=== PATIENT | female | born 1960 | race African-American/Black ===

== ENCOUNTER → 2017-09-11 | Outpatient (CLI) | payer BC | END | disposition home or self-care (01) | LOC: RAD 13:41 | DX: M19.032 Primary osteoarthritis, left wrist (principal); M19.031 Primary osteoarthritis, right wrist; E04.1 Nontoxic single thyroid nodule | CPT/HCPCS: 73110; 76536 ==

== ENCOUNTER → 2017-10-07 | Outpatient (CLI) | payer BC ==
[2017-10-07 14:56] LABS: ADD MAN DIFF? NO
[2017-10-07 15:05] LABS: WHITE BLOOD COUNT 3.5 10^3/ul (4.8-10.8)
[2017-10-07 15:05] LABS: BASOPHILS % 1.1 % (0.0-2.0); EOSINOPHILS # 0.1 10^3/ul (0.0-0.5); HEMATOCRIT 37.1 % (37.0-47.0); HEMOGLOBIN 12.4 g/dl (12.0-16.0); LYMPHOCYTES # 1.2 10^3/ul (0.8-2.9); LYMPHOCYTES % 33.5 % (15.0-51.0); MEAN CORPUSCULAR HEMOGLOBIN 27.2 pg (29.0-33.0); MEAN CORPUSCULAR HGB CONC 33.4 g/dl (32.0-37.0); MEAN CORPUSCULAR VOLUME 81.4 fl (82.0-101.0); MEAN PLATELET VOLUME 10.8 fl (7.4-10.4); MONOCYTE # 0.3 10^3/ul (0.3-0.9); MONOCYTES % 7.7 % (0.0-11.0); NEUTROPHIL # 1.9 10^3/ul (1.6-7.5); NEUTROPHILS % 55.4 % (39.0-77.0); PLATELET COUNT 194 10^3/UL (140-415); RED BLOOD COUNT 4.56 10^6/ul (4.20-5.40); RED CELL DISTRIBUTION WIDTH 14.8 % (11.5-14.5)
[2017-10-07 15:14] LABS: ALKALINE PHOSPHATASE 73 IU/L (42-121); ASPARTATE AMINO TRANSFERASE 30 IU/L (15-46); CREATININE 1.21 mg/dl (0.44-1.00)
[2017-10-07 15:14] LABS: BLOOD UREA NITROGEN 18 mg/dl (7-20)
[2017-10-07 16:22] LABS: ERYTHROCYTE SEDIMENTATION RATE 10 mm/Hr (0-30)
[2017-10-08 20:52] LABS: ANA SCREEN POSITIVE (NEGATIVE)
[2017-10-08 21:33] LABS: ANA PATTERN SPECKLED; ANA TITER 1:40 titer
[2017-10-09 15:11] LABS: CYCLIC CITRULLINATED PEP IGG <16 UNITS
== END | disposition home or self-care (01) ==
LOC: LAB 09:17
DX: M25.50 Pain in unspecified joint (principal); M25.40 Effusion, unspecified joint; M79.1 Myalgia
CPT/HCPCS: 82565; 84075; 84450; 84520; 85025; 85651; 86038; 86200

== ENCOUNTER → 2017-11-24 | Outpatient (CLI) | payer BC ==
[2017-11-24 11:05] LABS: ADD MAN DIFF? NO
[2017-11-24 11:12] LABS: WHITE BLOOD COUNT 3.2 10^3/ul (4.8-10.8)
[2017-11-24 11:12] LABS: BASOPHILS % 0.9 % (0.0-2.0); EOSINOPHILS # 0.1 10^3/ul (0.0-0.5); EOSINOPHILS % 1.9 % (0.0-7.0); HEMATOCRIT 38.8 % (37.0-47.0); LYMPHOCYTES # 1.1 10^3/ul (0.8-2.9); LYMPHOCYTES % 33.3 % (15.0-51.0); MEAN CORPUSCULAR HEMOGLOBIN 27.1 pg (29.0-33.0); MEAN CORPUSCULAR HGB CONC 33.5 g/dl (32.0-37.0); MEAN CORPUSCULAR VOLUME 80.8 fl (82.0-101.0); MEAN PLATELET VOLUME 10.2 fl (7.4-10.4); MONOCYTE # 0.3 10^3/ul (0.3-0.9); MONOCYTES % 10.4 % (0.0-11.0); NEUTROPHIL # 1.7 10^3/ul (1.6-7.5); NEUTROPHILS % 53.2 % (39.0-77.0); PLATELET COUNT 216 10^3/UL (140-415); RED CELL DISTRIBUTION WIDTH 14.4 % (11.5-14.5)
[2017-11-24 11:28] LABS: HEMOGLOBIN A1C 5.4 % (0-5.9)
[2017-11-24 11:35] LABS: ALANINE AMINOTRANSFERASE 37 IU/L (13-69); ALBUMIN 4.9 g/dl (3.3-4.9); ALBUMIN/GLOBULIN RATIO 1.53; ALKALINE PHOSPHATASE 72 IU/L (42-121); ANION GAP 15 (8-16); ASPARTATE AMINO TRANSFERASE 34 IU/L (15-46); BILIRUBIN,INDIRECT 0.2 mg/dl (0-1.1); BILIRUBIN,TOTAL 0.2 mg/dl (0.2-1.3); BLOOD UREA NITROGEN 20 mg/dl (7-20); CALCIUM 10.1 mg/dl (8.4-10.2); CARBON DIOXIDE 31 mmol/L (21-31); CHLORIDE 107 mmol/L (97-110); CHOL/HDL RATIO 2.6 RATIO; CHOLESTEROL 192 mg/dl (100-200); GLUCOSE 96 mg/dl (70-220); HDL CHOLESTEROL 72 mg/dl (37-92); LDL CHOLESTEROL,CALCULATED 106 mg/dl; POTASSIUM 4.3 mmol/L (3.5-5.1); SODIUM 149 mmol/L (135-144); TOTAL PROTEIN 8.1 g/dl (6.1-8.1); TRIGLYCERIDES 69 mg/dl (0-149)
[2017-11-24 12:05] LABS: THYROID STIMULATING HORMONE 0.984 MIU/L (0.465-4.680)
== END | disposition home or self-care (01) ==
LOC: LAB 10:20
DX: E78.5 Hyperlipidemia, unspecified (principal); E03.9 Hypothyroidism, unspecified; R73.03 Prediabetes
CPT/HCPCS: 80053; 80061; 82306; 83036; 84436; 84443; 85025

== ENCOUNTER → 2017-11-24 | Outpatient (CLI) | payer BC ==
[2017-11-24 11:36] LABS: CREATINE KINASE 352 IU/L (23-200)
[2017-11-24 11:36] LABS: PHOSPHORUS 4.2 mg/dl (2.5-4.9)
== END | disposition home or self-care (01) ==
LOC: LAB 10:22
DX: E78.5 Hyperlipidemia, unspecified (principal); E03.9 Hypothyroidism, unspecified; R73.03 Prediabetes
CPT/HCPCS: 82550; 84100; 85651

== ENCOUNTER → 2018-03-29 | Outpatient (CLI) | payer BC ==
[2018-03-29 09:32] LABS: ADD MAN DIFF? NO
[2018-03-29 09:36] LABS: BASOPHILS % 0.7 % (0.0-2.0); EOSINOPHILS # 0.1 10^3/ul (0.0-0.5); EOSINOPHILS % 2.3 % (0.0-7.0); HEMATOCRIT 39.1 % (37.0-47.0); LYMPHOCYTES % 31.1 % (15.0-51.0); MEAN CORPUSCULAR HEMOGLOBIN 27.1 pg (29.0-33.0); MEAN CORPUSCULAR HGB CONC 33.2 g/dl (32.0-37.0); MEAN CORPUSCULAR VOLUME 81.6 fl (82.0-101.0); MEAN PLATELET VOLUME 10.2 fl (7.4-10.4); MONOCYTE # 0.2 10^3/ul (0.3-0.9); MONOCYTES % 7.5 % (0.0-11.0); NEUTROPHIL # 1.8 10^3/ul (1.6-7.5); NEUTROPHILS % 58.1 % (39.0-77.0); PLATELET COUNT 242 10^3/UL (140-415); RED BLOOD COUNT 4.79 10^6/ul (4.20-5.40); RED CELL DISTRIBUTION WIDTH 14.6 % (11.5-14.5)
[2018-03-29 09:36] LABS: WHITE BLOOD COUNT 3.1 10^3/ul (4.8-10.8)
[2018-03-29 09:54] LABS: SODIUM 145 mmol/L (135-144)
[2018-03-29 09:54] LABS: ALANINE AMINOTRANSFERASE 26 IU/L (13-69); ALKALINE PHOSPHATASE 60 IU/L (42-121); ASPARTATE AMINO TRANSFERASE 26 IU/L (15-46); BLOOD UREA NITROGEN 18 mg/dl (7-20); CARBON DIOXIDE 30 mmol/L (21-31); CHLORIDE 106 mmol/L (97-110); CREATINE KINASE 322 IU/L (23-200); CREATININE 1.07 mg/dl (0.44-1.00); LACTATE DEHYDROGENASE 655 IU/L (313-618); POTASSIUM 4.1 mmol/L (3.5-5.1)
[2018-03-29 10:45] LABS: ERYTHROCYTE SEDIMENTATION RATE 3 mm/Hr (0-30)
== END | disposition home or self-care (01) ==
LOC: LAB 08:46
DX: G72.9 Myopathy, unspecified (principal); M25.50 Pain in unspecified joint; M25.40 Effusion, unspecified joint
CPT/HCPCS: 82085; 82374; 82435; 82550; 82565; 83615; 84075; 84132; 84295; 84450; 84460; 84520; 85025; 85651

== ENCOUNTER → 2018-03-29 | Outpatient (CLI) | payer BC ==
[2018-03-29 10:09] LABS: FREE T3 3.97 pg/ml (2.77-5.27)
[2018-03-29 10:22] LABS: FREE T4 (FREE THYROXINE) 1.16 ng/dl (0.64-1.79)
== END | disposition home or self-care (01) ==
LOC: LAB 08:51
DX: R22.1 Localized swelling, mass and lump, neck (principal)
CPT/HCPCS: 84439; 84443; 84481

== ENCOUNTER → 2018-06-07 | Outpatient (CLI) | payer BC ==
[2018-06-07 09:14] LABS: ADD MAN DIFF? NO
[2018-06-07 09:19] LABS: BASOPHILS % 1.2 % (0.0-2.0); EOSINOPHILS % 1.7 % (0.0-7.0); HEMATOCRIT 41.1 % (37.0-47.0); HEMOGLOBIN 13.6 g/dl (12.0-16.0); LYMPHOCYTES # 0.9 10^3/ul (0.8-2.9); LYMPHOCYTES % 37.6 % (15.0-51.0); MEAN CORPUSCULAR HEMOGLOBIN 26.4 pg (29.0-33.0); MEAN CORPUSCULAR HGB CONC 33.1 g/dl (32.0-37.0); MEAN CORPUSCULAR VOLUME 79.8 fl (82.0-101.0); MEAN PLATELET VOLUME 10.2 fl (7.4-10.4); MONOCYTE # 0.3 10^3/ul (0.3-0.9); NEUTROPHIL # 1.2 10^3/ul (1.6-7.5); NEUTROPHILS % 47.5 % (39.0-77.0); PLATELET COUNT 214 10^3/UL (140-415); RED BLOOD COUNT 5.15 10^6/ul (4.20-5.40)
[2018-06-07 09:19] LABS: WHITE BLOOD COUNT 2.4 10^3/ul (4.8-10.8)
[2018-06-07 09:43] LABS: ALANINE AMINOTRANSFERASE 37 IU/L (13-69); ALKALINE PHOSPHATASE 64 IU/L (42-121); ASPARTATE AMINO TRANSFERASE 26 IU/L (15-46); CREATININE 1.02 mg/dl (0.44-1.00)
[2018-06-07 09:43] LABS: BLOOD UREA NITROGEN 15 mg/dl (7-20)
[2018-06-07 10:15] LABS: HEPATITIS B SURFACE ANTIGEN NEGATIVE (NEGATIVE)
[2018-06-07 10:33] LABS: HEPATITIS C VIRAL ANTIBODY NEGATIVE (NEGATIVE)
[2018-06-07 10:52] LABS: ERYTHROCYTE SEDIMENTATION RATE 4 mm/Hr (0-30)
[2018-06-07 16:47] LABS: RHEUMATOID FACTOR NEGATIVE (NEGATIVE)
[2018-06-08 20:06] LABS: CYCLIC CITRULLINATED PEP IGG <16 UNITS
[2018-06-09 20:52] LABS: NIL 0.05 IU/mL; QUANTIFERON(R)-TB GOLD NEGATIVE (NEGATIVE); TB-NIL <0.00 IU/mL
== END | disposition home or self-care (01) ==
LOC: LAB 08:51
DX: M19.90 Unspecified osteoarthritis, unspecified site (principal)
CPT/HCPCS: 82565; 84075; 84450; 84460; 84520; 85025; 85651; 86200; 86430; 86480; 86803; 87340

== ENCOUNTER → 2018-10-15 | Outpatient (CLI) | payer BC ==
[2018-10-15 14:53] LABS: ADD MAN DIFF? NO
[2018-10-15 14:56] LABS: BASOPHILS % 1.2 % (0.0-2.0); EOSINOPHILS % 1.2 % (0.0-7.0); HEMATOCRIT 42.2 % (37.0-47.0); HEMOGLOBIN 13.9 g/dl (12.0-16.0); LYMPHOCYTES # 0.8 10^3/ul (0.8-2.9); LYMPHOCYTES % 24.8 % (15.0-51.0); MEAN CORPUSCULAR HEMOGLOBIN 27.1 pg (29.0-33.0); MEAN CORPUSCULAR HGB CONC 32.9 g/dl (32.0-37.0); MEAN CORPUSCULAR VOLUME 82.3 fl (82.0-101.0); MEAN PLATELET VOLUME 10.5 fl (7.4-10.4); MONOCYTE # 0.4 10^3/ul (0.3-0.9); MONOCYTES % 11.6 % (0.0-11.0); NEUTROPHILS % 60.9 % (39.0-77.0); PLATELET COUNT 202 10^3/UL (140-415); RED BLOOD COUNT 5.13 10^6/ul (4.20-5.40); RED CELL DISTRIBUTION WIDTH 14.3 % (11.5-14.5)
[2018-10-15 14:56] LABS: WHITE BLOOD COUNT 3.3 10^3/ul (4.8-10.8)
[2018-10-15 15:18] LABS: ALANINE AMINOTRANSFERASE 30 IU/L (13-69); ALBUMIN 4.9 g/dl (3.3-4.9); ALBUMIN/GLOBULIN RATIO 1.36; ALKALINE PHOSPHATASE 77 IU/L (42-121); ANION GAP 9 (5-13); ASPARTATE AMINO TRANSFERASE 37 IU/L (15-46); BILIRUBIN,INDIRECT 0.6 mg/dl (0-1.1); BILIRUBIN,TOTAL 0.6 mg/dl (0.2-1.3); BLOOD UREA NITROGEN 17 mg/dl (7-20); CALCIUM 10.6 mg/dl (8.4-10.2); CARBON DIOXIDE 30 mmol/L (21-31); CHLORIDE 104 mmol/L (97-110); CREATININE 1.23 mg/dl (0.44-1.00); Estimated GFR 55 mL/min (>60); GLUCOSE 90 mg/dl (70-220); POTASSIUM 3.8 mmol/L (3.5-5.1); SODIUM 143 mmol/L (135-144); TOTAL PROTEIN 8.5 g/dl (6.1-8.1)
[2018-10-15 15:36] LABS: FREE T4 (FREE THYROXINE) 1.28 ng/dl (0.64-1.79)
[2018-10-15 16:14] LABS: THYROID STIMULATING HORMONE 0.802 MIU/L (0.465-4.680)
[2018-10-15 16:21] LABS: ERYTHROCYTE SEDIMENTATION RATE 2 mm/Hr (0-30)
[2018-10-15 21:14] LABS: RHEUMATOID FACTOR NEGATIVE (NEGATIVE)
== END | disposition home or self-care (01) ==
LOC: LAB 14:15
DX: M79.10 Myalgia, unspecified site (principal)
CPT/HCPCS: 80053; 84439; 84443; 85025; 85651; 86430

== ENCOUNTER → 2018-12-28 | Outpatient (CLI) | payer BC ==
[2018-12-28 16:48] LABS: FOLATE 7.1 ng/ml (2.8-20.0)
== END | disposition home or self-care (01) ==
LOC: LAB 09:43
DX: M25.40 Effusion, unspecified joint (principal); M79.10 Myalgia, unspecified site
CPT/HCPCS: 82607; 82746; 85651

== ENCOUNTER → 2018-12-28 | Outpatient (CLI) | payer BC ==
[2018-12-28 10:01] LABS: ADD MAN DIFF? NO
[2018-12-28 10:11] LABS: WHITE BLOOD COUNT 2.8 10^3/ul (4.8-10.8)
[2018-12-28 10:11] LABS: BASOPHIL # 0.1 10^3/ul (0.0-0.1); BASOPHILS % 1.8 % (0.0-2.0); EOSINOPHILS # 0.1 10^3/ul (0.0-0.5); EOSINOPHILS % 3.9 % (0.0-7.0); HEMATOCRIT 38.3 % (37.0-47.0); HEMOGLOBIN 12.8 g/dl (12.0-16.0); LYMPHOCYTES # 0.9 10^3/ul (0.8-2.9); LYMPHOCYTES % 31.5 % (15.0-51.0); MEAN CORPUSCULAR HEMOGLOBIN 27.2 pg (29.0-33.0); MEAN CORPUSCULAR HGB CONC 33.4 g/dl (32.0-37.0); MEAN CORPUSCULAR VOLUME 81.3 fl (82.0-101.0); MEAN PLATELET VOLUME 10.9 fl (7.4-10.4); MONOCYTE # 0.3 10^3/ul (0.3-0.9); MONOCYTES % 11.1 % (0.0-11.0); NEUTROPHIL # 1.4 10^3/ul (1.6-7.5); NEUTROPHILS % 51.3 % (39.0-77.0); PLATELET COUNT 190 10^3/UL (140-415); RED BLOOD COUNT 4.71 10^6/ul (4.20-5.40); RED CELL DISTRIBUTION WIDTH 13.9 % (11.5-14.5)
[2018-12-28 10:42] LABS: ALANINE AMINOTRANSFERASE 25 IU/L (13-69); ALBUMIN 4.4 g/dl (3.3-4.9); ALBUMIN/GLOBULIN RATIO 1.41; ALKALINE PHOSPHATASE 56 IU/L (42-121); ANION GAP 8 (5-13); ASPARTATE AMINO TRANSFERASE 33 IU/L (15-46); BILIRUBIN,INDIRECT 0.2 mg/dl (0-1.1); BILIRUBIN,TOTAL 0.2 mg/dl (0.2-1.3); BLOOD UREA NITROGEN 18 mg/dl (7-20); CALCIUM 10.5 mg/dl (8.4-10.2); CARBON DIOXIDE 32 mmol/L (21-31); CHLORIDE 105 mmol/L (97-110); CHOL/HDL RATIO 2.8 RATIO; CHOLESTEROL 182 mg/dl (100-200); Estimated GFR > 60 mL/min (>60); GLUCOSE 94 mg/dl (70-220); HDL CHOLESTEROL 64 mg/dl (37-92); LDL CHOLESTEROL,CALCULATED 105 mg/dl; POTASSIUM 4.1 mmol/L (3.5-5.1); SODIUM 145 mmol/L (135-144); TOTAL PROTEIN 7.5 g/dl (6.1-8.1); TRIGLYCERIDES 64 mg/dl (0-149)
[2018-12-28 11:44] LABS: HEMOGLOBIN A1C 5.5 % (0-5.9)
[2018-12-28 15:19] LABS: T4 (THYROXINE) 8.6 ug/dl (5.5-11.0)
== END | disposition home or self-care (01) ==
LOC: LAB 09:36
DX: E78.5 Hyperlipidemia, unspecified (principal); E03.9 Hypothyroidism, unspecified; R73.03 Prediabetes
CPT/HCPCS: 80053; 80061; 83036; 84436; 84443; 85025

== ENCOUNTER 2019-01-13 11:52 | Emergency (ER) | payer BC ==
[2019-01-13 12:36] LABS: ADD MAN DIFF? NO
[2019-01-13 12:42] LABS: BASOPHILS % 0.7 % (0.0-2.0); EOSINOPHILS # 0.1 10^3/ul (0.0-0.5); EOSINOPHILS % 1.1 % (0.0-7.0); HEMATOCRIT 38.3 % (37.0-47.0); LYMPHOCYTES % 17.8 % (15.0-51.0); MEAN CORPUSCULAR HEMOGLOBIN 27.3 pg (29.0-33.0); MEAN CORPUSCULAR HGB CONC 33.9 g/dl (32.0-37.0); MEAN CORPUSCULAR VOLUME 80.3 fl (82.0-101.0); MEAN PLATELET VOLUME 10.5 fl (7.4-10.4); MONOCYTE # 0.6 10^3/ul (0.3-0.9); MONOCYTES % 11.1 % (0.0-11.0); NEUTROPHIL # 3.9 10^3/ul (1.6-7.5); NEUTROPHILS % 69.1 % (39.0-77.0); PLATELET COUNT 218 10^3/UL (140-415); RED BLOOD COUNT 4.77 10^6/ul (4.20-5.40); RED CELL DISTRIBUTION WIDTH 14.4 % (11.5-14.5)
[2019-01-13 12:42] LABS: WHITE BLOOD COUNT 5.7 10^3/ul (4.8-10.8)
[2019-01-13 13:01] LABS: INR 1.07; PT RATIO 1.1
[2019-01-13 13:02] LABS: ALANINE AMINOTRANSFERASE 30 IU/L (13-69); ALBUMIN 4.1 g/dl (3.3-4.9); ALBUMIN/GLOBULIN RATIO 1.46; ALKALINE PHOSPHATASE 62 IU/L (42-121); ANION GAP 7 (5-13); ASPARTATE AMINO TRANSFERASE 23 IU/L (15-46); BILIRUBIN,INDIRECT 0.7 mg/dl (0-1.1); BILIRUBIN,TOTAL 0.7 mg/dl (0.2-1.3); BLOOD UREA NITROGEN 14 mg/dl (7-20); CALCIUM 10.4 mg/dl (8.4-10.2); CARBON DIOXIDE 31 mmol/L (21-31); CHLORIDE 105 mmol/L (97-110); CREATINE KINASE 188 IU/L (23-200); CREATININE 1.01 mg/dl (0.44-1.00); Estimated GFR > 60 mL/min (>60); GLUCOSE 90 mg/dl (70-220); PARTIAL THROMBOPLASTIN TIME 25.9 Sec (23.0-35.0); POTASSIUM 4.1 mmol/L (3.5-5.1); SODIUM 143 mmol/L (135-144); TOTAL PROTEIN 6.9 g/dl (6.1-8.1)
[2019-01-13 13:14] LABS: B-TYPE NATRIURETIC PEPTIDE 80 PG/ML (0-125); CK INDEX 0.8; CK-MB 1.59 ng/ml (0.0-2.4); TROPONIN-I < 0.012 ng/ml (0.000-0.120)
[2019-01-13] MEDS ORDERED: SOD CHLORIDE 0.9% 100 ML (13:30)
[2019-01-13] MEDS ORDERED: IOHEXOL 100 ML (13:30)
[2019-01-13] MEDS: CEFEPIME 1GM/50 ML (PMX) 50 ML IVPB (15:27)
[2019-01-13 15:48] LABS: ADD UMIC NO; UR ASCORBIC ACID NEGATIVE (NEGATIVE); UR BILIRUBIN (Dip) NEGATIVE (NEGATIVE); UR BLOOD (Dip) NEGATIVE (NEGATIVE); UR CLARITY CLEAR (CLEAR); UR COLOR STRAW (YELLOW); UR GLUCOSE (Dip) NEGATIVE (NEGATIVE); UR KETONES (Dip) NEGATIVE (NEGATIVE); UR LEUKOCYTE ESTERASE (Dip) NEGATIVE Leu/ul (NEGATIVE); UR NITRITE (Dip) NEGATIVE (NEGATIVE); UR SPECIFIC GRAVITY (Dip) 1.041 (1.003-1.030); UR TOTAL PROTEIN (Dip) NEGATIVE (NEGATIVE); UR UROBILINOGEN (Dip) NEGATIVE (NEGATIVE)
[2019-01-13] MEDS: VANCOMYCIN 1 GM (PMX) 250 ML IVPB (16:09)
[2019-01-13] MEDS: KETOROLAC 30 MG INJ IV (16:13)
== END 2019-01-13 18:54 | disposition home or self-care (01) ==
LOC: E/R 11:52
DX: R91.8 Other nonspecific abnormal finding of lung field (principal); I10 Essential (primary) hypertension; Z87.891 Personal history of nicotine dependence
CPT/HCPCS: 71275; 74177; 80053; 81003; 82550; 82553; 83880; 84484; 85025; 85610; 85730; 87040-91; 87086; 93005; 96374; 96375; 99285-25

== ENCOUNTER → 2019-01-27 | Outpatient (CLI) | payer BC ==
[~2019-01-27] MED LIST: ALBUTEROL 0.5% (NEB) 2.5 MG/0.5 ML AMP
== END | disposition home or self-care (01) ==
LOC: PUL 07:04
DX: R91.8 Other nonspecific abnormal finding of lung field (principal)
CPT/HCPCS: 94060; 94664; 94726; 94729

== ENCOUNTER 2019-02-08 10:18 | Inpatient (IN) | payer BC ==
[2019-02-02 14:09] LABS: ADD MAN DIFF? NO
[2019-02-02 14:11] LABS: WHITE BLOOD COUNT 3.2 10^3/ul (4.8-10.8)
[2019-02-02 14:11] LABS: BASOPHILS % 1.3 % (0.0-2.0); EOSINOPHILS # 0.1 10^3/ul (0.0-0.5); EOSINOPHILS % 3.5 % (0.0-7.0); HEMATOCRIT 37.6 % (37.0-47.0); HEMOGLOBIN 12.3 g/dl (12.0-16.0); LYMPHOCYTES # 1.3 10^3/ul (0.8-2.9); LYMPHOCYTES % 40.1 % (15.0-51.0); MEAN CORPUSCULAR HEMOGLOBIN 26.7 pg (29.0-33.0); MEAN CORPUSCULAR HGB CONC 32.7 g/dl (32.0-37.0); MEAN CORPUSCULAR VOLUME 81.6 fl (82.0-101.0); MEAN PLATELET VOLUME 10.1 fl (7.4-10.4); MONOCYTE # 0.3 10^3/ul (0.3-0.9); MONOCYTES % 9.8 % (0.0-11.0); NEUTROPHIL # 1.4 10^3/ul (1.6-7.5); NEUTROPHILS % 45.3 % (39.0-77.0); PLATELET COUNT 230 10^3/UL (140-415); RED BLOOD COUNT 4.61 10^6/ul (4.20-5.40); RED CELL DISTRIBUTION WIDTH 14.2 % (11.5-14.5)
[2019-02-02 14:15] LABS: ADD UMIC NO; UR ASCORBIC ACID NEGATIVE (NEGATIVE); UR BILIRUBIN (Dip) NEGATIVE (NEGATIVE); UR BLOOD (Dip) NEGATIVE (NEGATIVE); UR CLARITY CLEAR (CLEAR); UR COLOR YELLOW (YELLOW); UR GLUCOSE (Dip) NEGATIVE (NEGATIVE); UR KETONES (Dip) NEGATIVE (NEGATIVE); UR LEUKOCYTE ESTERASE (Dip) NEGATIVE Leu/ul (NEGATIVE); UR NITRITE (Dip) NEGATIVE (NEGATIVE); UR SPECIFIC GRAVITY (Dip) 1.011 (1.003-1.030); UR TOTAL PROTEIN (Dip) NEGATIVE (NEGATIVE); UR UROBILINOGEN (Dip) NEGATIVE (NEGATIVE)
[2019-02-02 14:31] LABS: INR 0.93; PARTIAL THROMBOPLASTIN TIME 26.4 Sec (23.0-35.0); PROTIME 12.6 Sec (11.9-14.9)
[2019-02-02 14:34] LABS: ANION GAP 5 (5-13); BLOOD UREA NITROGEN 15 mg/dl (7-20); CALCIUM 9.6 mg/dl (8.4-10.2); CARBON DIOXIDE 31 mmol/L (21-31); CHLORIDE 107 mmol/L (97-110); Estimated GFR > 60 mL/min (>60); GLUCOSE 93 mg/dl (70-220); POTASSIUM 4.3 mmol/L (3.5-5.1); SODIUM 143 mmol/L (135-144)
[2019-02-08] MEDS ORDERED: SEVOFLURANE 15 MIN (13:00)
[2019-02-08] MEDS ORDERED: MIDAZOLAM 1 MG/ML 2 ML INJ (13:16)
[2019-02-08] MEDS ORDERED: BUPIVACAINE 0.5%/EPI (SDV) 30 ML INJ (13:46)
[2019-02-08] MEDS ORDERED: ROCURONIUM 50 MG INJ (15:33)
[2019-02-08] MEDS ORDERED: LIDOCAINE 2% (SDV) 5 ML INJ (15:35)
[2019-02-08] MEDS ORDERED: CEFAZOLIN 1 GM INJ ×2 (15:35→15:36)
[2019-02-08] MEDS ORDERED: PROPOFOL 20 ML (15:35)
[2019-02-08] MEDS ORDERED: METOCLOPRAMIDE 10 MG INJ (15:36)
[2019-02-08] MEDS ORDERED: ONDANSETRON 4 MG INJ ×2 (15:36→16:13)
[2019-02-08] MEDS ORDERED: DEXAMETHASONE 4 MG/ML 5 ML INJ (15:37)
[2019-02-08] MEDS ORDERED: OXYCODONE/ACETAMINOPHEN (5/325) TAB PO (16:00)
[2019-02-08] MEDS ORDERED: DIPHENHYDRAMINE 50 MG INJ IV ×2 (16:00→16:30)
[2019-02-08] MEDS ORDERED: GLYCOPYRROLATE 0.4 MG INJ (16:03)
[2019-02-08] MEDS ORDERED: NEOSTIGMINE 3 MG/3 ML SYRINGE (16:03)
[2019-02-08] MEDS ORDERED: FENTAnyl 50 MCG/ML VIAL (16:11)
[2019-02-08] MEDS ORDERED: LABETALOL HCL 20MG INJ IV (16:30)
[2019-02-08] MEDS ORDERED: LORAZEPAM 2 MG INJ IV (16:30)
[2019-02-08] MEDS ORDERED: MIDAZOLAM 1 MG/ML 2 ML INJ IV (16:30)
[2019-02-08] MEDS ORDERED: FENTAnyl 50 MCG/ML VIAL IV (16:30)
[2019-02-08] MEDS ORDERED: hydrALAzine 20 MG INJ IV (16:30)
[2019-02-08] MEDS ORDERED: ONDANSETRON 4 MG INJ IV (16:30)
[2019-02-08] MEDS ORDERED: METOCLOPRAMIDE 10 MG INJ IV (16:30)
[2019-02-08] MEDS: D5W-0.45 NACL + KCL 20 MEQ 1,000 ML IV (16:58)
[2019-02-08] MEDS: ONDANSETRON 4 MG INJ IV (16:59)
[2019-02-08] MEDS: FENTAnyl 50 MCG/ML VIAL IV (17:00)
[2019-02-08] MEDS: KETOROLAC 30 MG INJ IV (17:26)
[2019-02-08] MEDS: CEFAZOLIN 2 GM/50 ML (PMX) 50 ML IVPB (17:43)
[2019-02-08] MEDS: HYDROmorphONE 0.5 MG/0.5 ML SYG IV ×2 (19:43→23:18)
[2019-02-08] MEDS: FAMOTIDINE 20 MG TAB PO (21:00)
[2019-02-09] MEDS: CEFAZOLIN 2 GM/50 ML (PMX) 50 ML IVPB ×2 (01:04→10:39)
[2019-02-09] MEDS: HYDROmorphONE 0.5 MG/0.5 ML SYG IV ×6 (03:45→22:13)
[2019-02-09 05:09] LABS: ADD MAN DIFF? NO
[2019-02-09 05:14] LABS: ABNORMAL IP MESSAGE 1; BASOPHILS % 0.1 % (0.0-2.0); HEMATOCRIT 32.6 % (37.0-47.0); LYMPHOCYTES # 0.3 10^3/ul (0.8-2.9); LYMPHOCYTES % 3.2 % (15.0-51.0); MEAN CORPUSCULAR HGB CONC 33.7 g/dl (32.0-37.0); MEAN CORPUSCULAR VOLUME 80.1 fl (82.0-101.0); MEAN PLATELET VOLUME 11.2 fl (7.4-10.4); MONOCYTE # 0.3 10^3/ul (0.3-0.9); MONOCYTES % 3.3 % (0.0-11.0); NEUTROPHIL # 9.3 10^3/ul (1.6-7.5); NEUTROPHILS % 93.1 % (39.0-77.0); PLATELET COUNT 188 10^3/UL (140-415); RED BLOOD COUNT 4.07 10^6/ul (4.20-5.40); RED CELL DISTRIBUTION WIDTH 14.1 % (11.5-14.5)
[2019-02-09 05:18] LABS: POSITIVE DIFF @See below
[2019-02-09 06:00] LABS: ANION GAP 6 (5-13); BLOOD UREA NITROGEN 16 mg/dl (7-20); CALCIUM 8.9 mg/dl (8.4-10.2); CARBON DIOXIDE 26 mmol/L (21-31); CHLORIDE 109 mmol/L (97-110); CREATININE 0.91 mg/dl (0.44-1.00); Estimated GFR > 60 mL/min (>60); GLUCOSE 138 mg/dl (70-220); POTASSIUM 3.8 mmol/L (3.5-5.1); SODIUM 141 mmol/L (135-144)
[2019-02-09] MEDS: ENOXAPARIN 40 MG/0.4 ML SYG SC (06:12)
[2019-02-09] MEDS: FAMOTIDINE 20 MG TAB PO ×2 (08:41→20:48)
[2019-02-09] MEDS: ONDANSETRON 4 MG INJ IV ×2 (10:15→19:34)
[2019-02-09] MEDS: D5W-0.45 NACL + KCL 20 MEQ 1,000 ML IV (10:39)
[2019-02-09 19:06] LABS: IRON 20 ug/dl (35-150)
[2019-02-09 19:15] LABS: % IRON SATURATION 9 % SAT (22-52); TOTAL IRON BINDING CAPACITY 231 ug/dl (241-421)
[2019-02-09 20:35] LABS: CARCINOEMBRYONIC ANTIGEN 3.2 ng/ml (0.0-5.0)
[2019-02-09] MEDS: METOCLOPRAMIDE 10 MG INJ IV (22:16)
[2019-02-10] MEDS: D5W-0.45 NACL + KCL 20 MEQ 1,000 ML IV ×2 (01:13→03:37)
[2019-02-10] MEDS: HYDROmorphONE 0.5 MG/0.5 ML SYG IV ×4 (01:59→22:58)
[2019-02-10 05:35] LABS: ADD MAN DIFF? NO
[2019-02-10 06:03] LABS: WHITE BLOOD COUNT 10.7 10^3/ul (4.8-10.8)
[2019-02-10 06:03] LABS: ABNORMAL IP MESSAGE 1; BASOPHILS % 0.3 % (0.0-2.0); HEMATOCRIT 32.6 % (37.0-47.0); HEMOGLOBIN 10.7 g/dl (12.0-16.0); LYMPHOCYTES # 0.5 10^3/ul (0.8-2.9); LYMPHOCYTES % 4.7 % (15.0-51.0); MEAN CORPUSCULAR HEMOGLOBIN 27.2 pg (29.0-33.0); MEAN CORPUSCULAR HGB CONC 32.8 g/dl (32.0-37.0); MEAN CORPUSCULAR VOLUME 82.7 fl (82.0-101.0); MEAN PLATELET VOLUME 11.1 fl (7.4-10.4); MONOCYTE # 0.6 10^3/ul (0.3-0.9); MONOCYTES % 5.4 % (0.0-11.0); NEUTROPHIL # 9.6 10^3/ul (1.6-7.5); PLATELET COUNT 184 10^3/UL (140-415); RED BLOOD COUNT 3.94 10^6/ul (4.20-5.40); RED CELL DISTRIBUTION WIDTH 14.7 % (11.5-14.5)
[2019-02-10 06:22] LABS: POSITIVE DIFF @See below
[2019-02-10 06:25] LABS: MAGNESIUM 2.3 mg/dl (1.7-2.5)
[2019-02-10] MEDS: ENOXAPARIN 40 MG/0.4 ML SYG SC (06:27)
[2019-02-10 06:33] LABS: ANION GAP 5 (5-13); BLOOD UREA NITROGEN 15 mg/dl (7-20); CALCIUM 8.5 mg/dl (8.4-10.2); CARBON DIOXIDE 27 mmol/L (21-31); CHLORIDE 111 mmol/L (97-110); CREATININE 0.93 mg/dl (0.44-1.00); Estimated GFR > 60 mL/min (>60); GLUCOSE 127 mg/dl (70-220); POTASSIUM 4.7 mmol/L (3.5-5.1); SODIUM 143 mmol/L (135-144)
[2019-02-10] MEDS: FAMOTIDINE 20 MG TAB PO ×2 (10:14→21:01)
[2019-02-10] MEDS: KETOROLAC 30 MG INJ IV ×2 (10:20→18:20)
[2019-02-10] MEDS: ONDANSETRON 4 MG INJ IV ×2 (14:55→22:58)
[2019-02-10] MEDS: MAGNESIUM HYDROXIDE 30ML CUP PO (17:00)
[2019-02-10] MEDS: ATORVASTATIN 10 MG TAB PO (21:01)
[2019-02-10] MEDS: DOCUSATE SODIUM 100 MG CAP PO (21:01)
[2019-02-11] MEDS: KETOROLAC 30 MG INJ IV (00:36)
[2019-02-11] MEDS: HYDROmorphONE 0.5 MG/0.5 ML SYG IV ×3 (03:17→20:36)
[2019-02-11] MEDS: ENOXAPARIN 40 MG/0.4 ML SYG SC (06:54)
[2019-02-11] MEDS: ONDANSETRON 4 MG INJ IV ×2 (07:47→14:06)
[2019-02-11] MEDS: DOCUSATE SODIUM 100 MG CAP PO ×2 (08:29→20:33)
[2019-02-11] MEDS: FAMOTIDINE 20 MG TAB PO ×2 (08:29→20:33)
[2019-02-11] MEDS: METOCLOPRAMIDE 10 MG INJ IV (08:33)
[2019-02-11] MEDS: AMLODIPINE 5 MG TAB PO (11:10)
[2019-02-11] MEDS: CYANOCOBALAMIN 1000 MCG INJ IM (11:10)
[2019-02-11] MEDS: FOLIC ACID 1 MG TAB PO (11:10)
[2019-02-11] MEDS: SOD FERRIC GLUC COMPLX 125 MG in SOD CHLORIDE 0.9% 100 ML IVPB (13:21)
[2019-02-11] MEDS: DEXTROSE 5%-0.45% NACL 1,000 ML IV (15:20)
[2019-02-11] MEDS: MAGNESIUM CITRATE 300 ML BTL PO (15:35)
[2019-02-11] MEDS: ATORVASTATIN 10 MG TAB PO (20:33)
[2019-02-12] MEDS: DEXTROSE 5%-0.45% NACL 1,000 ML IV (03:40)
[2019-02-12] MEDS: HYDROmorphONE 0.5 MG/0.5 ML SYG IV ×3 (03:50→23:50)
[2019-02-12 06:09] LABS: ADD MAN DIFF? NO; BASOPHILS % 0.5 % (0.0-2.0); EOSINOPHILS # 0.3 10^3/ul (0.0-0.5); EOSINOPHILS % 5.2 % (0.0-7.0); HEMATOCRIT 29.2 % (37.0-47.0); HEMOGLOBIN 9.7 g/dl (12.0-16.0); LYMPHOCYTES # 0.7 10^3/ul (0.8-2.9); LYMPHOCYTES % 12.2 % (15.0-51.0); MEAN CORPUSCULAR HEMOGLOBIN 27.2 pg (29.0-33.0); MEAN CORPUSCULAR HGB CONC 33.2 g/dl (32.0-37.0); MEAN CORPUSCULAR VOLUME 81.8 fl (82.0-101.0); MEAN PLATELET VOLUME 10.9 fl (7.4-10.4); MONOCYTE # 0.6 10^3/ul (0.3-0.9); MONOCYTES % 9.5 % (0.0-11.0); NEUTROPHIL # 4.3 10^3/ul (1.6-7.5); NEUTROPHILS % 72.1 % (39.0-77.0); PLATELET COUNT 175 10^3/UL (140-415); RED BLOOD COUNT 3.57 10^6/ul (4.20-5.40); RED CELL DISTRIBUTION WIDTH 14.7 % (11.5-14.5)
[2019-02-12 06:09] LABS: WHITE BLOOD COUNT 5.9 10^3/ul (4.8-10.8)
[2019-02-12] MEDS: ENOXAPARIN 40 MG/0.4 ML SYG SC (06:52)
[2019-02-12 06:59] LABS: ANION GAP 5 (5-13); BLOOD UREA NITROGEN 12 mg/dl (7-20); CALCIUM 8.7 mg/dl (8.4-10.2); CARBON DIOXIDE 31 mmol/L (21-31); CHLORIDE 107 mmol/L (97-110); CREATININE 0.85 mg/dl (0.44-1.00); Estimated GFR > 60 mL/min (>60); GLUCOSE 128 mg/dl (70-220); POTASSIUM 4.1 mmol/L (3.5-5.1); SODIUM 143 mmol/L (135-144)
[2019-02-12] MEDS: FAMOTIDINE 20 MG TAB PO ×2 (08:46→21:32)
[2019-02-12] MEDS: FOLIC ACID 1 MG TAB PO (08:46)
[2019-02-12] MEDS: DOCUSATE SODIUM 100 MG CAP PO ×2 (08:46→21:32)
[2019-02-12] MEDS: AMLODIPINE 5 MG TAB PO (08:46)
[2019-02-12] MEDS: SOD FERRIC GLUC COMPLX 125 MG in SOD CHLORIDE 0.9% 100 ML IVPB (12:24)
[2019-02-12] MEDS: ONDANSETRON 4 MG INJ IV (16:57)
[2019-02-12] MEDS: ATORVASTATIN 10 MG TAB PO (21:32)
[2019-02-13] MEDS: ACETAMINOPHEN 325 MG TAB PO ×2 (03:52→10:16)
[2019-02-13] MEDS: HYDROmorphONE 0.5 MG/0.5 ML SYG IV ×4 (06:22→23:56)
[2019-02-13] MEDS: HYDROCHLOROTHIAZIDE 12.5 MG CAP PO (06:23)
[2019-02-13] MEDS: ENOXAPARIN 40 MG/0.4 ML SYG SC (06:31)
[2019-02-13] MEDS: DOCUSATE SODIUM 100 MG CAP PO ×2 (08:21→21:18)
[2019-02-13] MEDS: AMLODIPINE 5 MG TAB PO (08:21)
[2019-02-13] MEDS: FAMOTIDINE 20 MG TAB PO ×2 (08:21→21:18)
[2019-02-13] MEDS: FOLIC ACID 1 MG TAB PO (08:21)
[2019-02-13] MEDS: SOD FERRIC GLUC COMPLX 125 MG in SOD CHLORIDE 0.9% 100 ML IVPB (13:00)
[2019-02-13] MEDS: ONDANSETRON 4 MG INJ IV ×2 (13:02→23:38)
[2019-02-13] MEDS: HYDROmorphONE 2 MG TAB PO (21:18)
[2019-02-13] MEDS: ATORVASTATIN 10 MG TAB PO (21:18)
[2019-02-14] MEDS: HYDROmorphONE 0.5 MG/0.5 ML SYG IV ×3 (03:02→14:16)
[2019-02-14] MEDS: HYDROCHLOROTHIAZIDE 12.5 MG CAP PO (06:05)
[2019-02-14] MEDS: ENOXAPARIN 40 MG/0.4 ML SYG SC (06:10)
[2019-02-14] MEDS: ACETAMINOPHEN 325 MG TAB PO ×3 (07:10→20:37)
[2019-02-14] MEDS: FOLIC ACID 1 MG TAB PO (08:11)
[2019-02-14] MEDS: FAMOTIDINE 20 MG TAB PO ×2 (08:11→20:43)
[2019-02-14] MEDS: DOCUSATE SODIUM 100 MG CAP PO ×2 (08:11→20:43)
[2019-02-14] MEDS: AMLODIPINE 5 MG TAB PO (08:11)
[2019-02-14] MEDS: ONDANSETRON 4 MG INJ IV (10:41)
[2019-02-14 13:33] LABS: ADD MAN DIFF? NO
[2019-02-14 13:52] LABS: WHITE BLOOD COUNT 6.2 10^3/ul (4.8-10.8)
[2019-02-14 13:52] LABS: BASOPHILS % 0.3 % (0.0-2.0); EOSINOPHILS # 0.2 10^3/ul (0.0-0.5); EOSINOPHILS % 3.6 % (0.0-7.0); HEMATOCRIT 32.4 % (37.0-47.0); HEMOGLOBIN 10.6 g/dl (12.0-16.0); LYMPHOCYTES # 0.8 10^3/ul (0.8-2.9); LYMPHOCYTES % 12.1 % (15.0-51.0); MEAN CORPUSCULAR HEMOGLOBIN 26.5 pg (29.0-33.0); MEAN CORPUSCULAR HGB CONC 32.7 g/dl (32.0-37.0); MEAN PLATELET VOLUME 10.2 fl (7.4-10.4); MONOCYTE # 0.5 10^3/ul (0.3-0.9); MONOCYTES % 8.7 % (0.0-11.0); NEUTROPHIL # 4.6 10^3/ul (1.6-7.5); NEUTROPHILS % 74.8 % (39.0-77.0); PLATELET COUNT 223 10^3/UL (140-415); RED CELL DISTRIBUTION WIDTH 14.5 % (11.5-14.5)
[2019-02-14 13:53] LABS: ANION GAP 5 (5-13); BLOOD UREA NITROGEN 13 mg/dl (7-20); CALCIUM 10.3 mg/dl (8.4-10.2); CARBON DIOXIDE 34 mmol/L (21-31); CHLORIDE 102 mmol/L (97-110); Estimated GFR > 60 mL/min (>60); GLUCOSE 109 mg/dl (70-220); POTASSIUM 4.2 mmol/L (3.5-5.1); SODIUM 141 mmol/L (135-144)
[2019-02-14] MEDS: FENTAnyl PATCH 12 MCG/HR TRANSDERM (17:33)
[2019-02-14] MEDS ORDERED: TIZANIDINE 2 MG TAB PO (20:30)
[2019-02-14] MEDS: TIZANIDINE 4 MG TAB PO ×2 (20:41→21:00)
[2019-02-14] MEDS: ATORVASTATIN 10 MG TAB PO (20:43)
[2019-02-14] MEDS: HYDROmorphONE 2 MG TAB PO (21:21)
[2019-02-15] MEDS: ONDANSETRON 4 MG INJ IV ×2 (03:44→09:03)
[2019-02-15] MEDS: HYDROmorphONE 2 MG TAB PO ×3 (03:44→13:21)
[2019-02-15] MEDS: HYDROCHLOROTHIAZIDE 12.5 MG CAP PO (06:29)
[2019-02-15] MEDS: ENOXAPARIN 40 MG/0.4 ML SYG SC (06:30)
[2019-02-15] MEDS: FAMOTIDINE 20 MG TAB PO ×2 (08:17→20:02)
[2019-02-15] MEDS: AMLODIPINE 5 MG TAB PO (08:17)
[2019-02-15] MEDS: FOLIC ACID 1 MG TAB PO (08:17)
[2019-02-15] MEDS: DOCUSATE SODIUM 100 MG CAP PO ×2 (08:18→20:02)
[2019-02-15 10:43] LABS: ADD MAN DIFF? NO
[2019-02-15 10:48] LABS: BASOPHILS % 0.6 % (0.0-2.0); EOSINOPHILS # 0.3 10^3/ul (0.0-0.5); EOSINOPHILS % 4.2 % (0.0-7.0); HEMATOCRIT 33.5 % (37.0-47.0); HEMOGLOBIN 11.2 g/dl (12.0-16.0); LYMPHOCYTES % 15.2 % (15.0-51.0); MEAN CORPUSCULAR HEMOGLOBIN 27.3 pg (29.0-33.0); MEAN CORPUSCULAR HGB CONC 33.4 g/dl (32.0-37.0); MEAN CORPUSCULAR VOLUME 81.5 fl (82.0-101.0); MEAN PLATELET VOLUME 9.9 fl (7.4-10.4); MONOCYTE # 0.6 10^3/ul (0.3-0.9); MONOCYTES % 8.2 % (0.0-11.0); NEUTROPHIL # 4.9 10^3/ul (1.6-7.5); NEUTROPHILS % 71.1 % (39.0-77.0); PLATELET COUNT 244 10^3/UL (140-415); RED BLOOD COUNT 4.11 10^6/ul (4.20-5.40); RED CELL DISTRIBUTION WIDTH 14.4 % (11.5-14.5)
[2019-02-15 10:48] LABS: WHITE BLOOD COUNT 6.9 10^3/ul (4.8-10.8)
[2019-02-15 11:04] LABS: ANION GAP 7 (5-13); BLOOD UREA NITROGEN 15 mg/dl (7-20); CALCIUM 10.6 mg/dl (8.4-10.2); CARBON DIOXIDE 33 mmol/L (21-31); CHLORIDE 102 mmol/L (97-110); CREATININE 1.19 mg/dl (0.44-1.00); Estimated GFR 57 mL/min (>60); GLUCOSE 125 mg/dl (70-220); POTASSIUM 4.7 mmol/L (3.5-5.1); SODIUM 142 mmol/L (135-144)
[2019-02-15] MEDS: ATORVASTATIN 10 MG TAB PO (20:02)
[2019-02-15] MEDS: TIZANIDINE 2 MG TAB PO (22:26)
[2019-02-15] MEDS: POLYETHYLENE GLYCOL 17 GM PACKET PO (22:31)
[2019-02-16] MEDS: HYDROmorphONE 2 MG TAB PO (00:48)
[2019-02-16] MEDS: HYDROCHLOROTHIAZIDE 12.5 MG CAP PO (06:07)
[2019-02-16] MEDS: ENOXAPARIN 40 MG/0.4 ML SYG SC (06:14)
[2019-02-16] MEDS: ACETAMINOPHEN 325 MG TAB PO (07:37)
[2019-02-16] MEDS: DOCUSATE SODIUM 100 MG CAP PO ×2 (08:13→20:08)
[2019-02-16] MEDS: AMLODIPINE 5 MG TAB PO (08:13)
[2019-02-16] MEDS: FAMOTIDINE 20 MG TAB PO ×2 (08:14→20:08)
[2019-02-16] MEDS: POLYETHYLENE GLYCOL 17 GM PACKET PO ×3 (08:14→20:08)
[2019-02-16] MEDS: FOLIC ACID 1 MG TAB PO (08:14)
[2019-02-16] MEDS: CEPASTAT LOZENGE MT ×2 (13:04→18:53)
[2019-02-16] MEDS: ONDANSETRON 4 MG INJ IV ×2 (13:04→21:28)
[2019-02-16] MEDS: HYDROmorphONE 1 MG/ML SYG IV (15:25)
[2019-02-16] MEDS: ATORVASTATIN 10 MG TAB PO (20:08)
[2019-02-16] MEDS ORDERED: HYDROmorphONE 1 MG/ML SYG IV (20:30)
[2019-02-16] MEDS: HYDROmorphONE 0.5 MG/0.5 ML SYG IV (21:56)
[2019-02-17] MEDS: HYDROCHLOROTHIAZIDE 12.5 MG CAP PO (06:18)
[2019-02-17] MEDS: ENOXAPARIN 40 MG/0.4 ML SYG SC (06:26)
[2019-02-17] MEDS: FAMOTIDINE 20 MG TAB PO ×2 (08:32→20:05)
[2019-02-17] MEDS: DOCUSATE SODIUM 100 MG CAP PO ×2 (08:32→20:05)
[2019-02-17] MEDS: FOLIC ACID 1 MG TAB PO (08:32)
[2019-02-17] MEDS: AMLODIPINE 5 MG TAB PO (08:32)
[2019-02-17] MEDS: POLYETHYLENE GLYCOL 17 GM PACKET PO ×2 (08:37→20:06)
[2019-02-17] MEDS: MELOXICAM 15 MG TAB PO (10:44)
[2019-02-17] MEDS: KETOROLAC 15 MG INJ IV (12:55)
[2019-02-17] MEDS: ONDANSETRON 4 MG INJ IV (17:08)
[2019-02-17] MEDS: HYDROmorphONE 0.5 MG/0.5 ML SYG IV (17:25)
[2019-02-17] MEDS: HYDROmorphONE 2 MG TAB PO (19:34)
[2019-02-17] MEDS: BISACODYL (EC) 5 MG TAB PO (20:05)
[2019-02-17] MEDS: ATORVASTATIN 10 MG TAB PO (20:05)
[2019-02-18] MEDS: HYDROmorphONE 2 MG TAB PO ×2 (01:03→04:47)
[2019-02-18] MEDS: HYDROCHLOROTHIAZIDE 12.5 MG CAP PO (06:14)
[2019-02-18] MEDS: DEXTROSE 5%-0.45% NACL 1,000 ML IV (10:53)
[2019-02-18] MEDS: FENTAnyl PATCH 50 MCG/HR TRANSDERM (11:01)
[2019-02-18] MEDS: DOCUSATE SODIUM 100 MG CAP PO ×2 (11:05→21:00)
[2019-02-18] MEDS: POLYETHYLENE GLYCOL 17 GM PACKET PO ×2 (11:05→21:00)
[2019-02-18] MEDS: MELOXICAM 15 MG TAB PO (11:05)
[2019-02-18] MEDS: AMLODIPINE 5 MG TAB PO (11:07)
[2019-02-18] MEDS: FOLIC ACID 1 MG TAB PO (11:07)
[2019-02-18] MEDS: FAMOTIDINE 20 MG TAB PO ×2 (11:07→22:05)
[2019-02-18] MEDS: ONDANSETRON 4 MG INJ IV ×2 (14:23→22:03)
[2019-02-18] MEDS: HYDROmorphONE 0.5 MG/0.5 ML SYG IV (14:43)
[2019-02-18] MEDS: ATORVASTATIN 10 MG TAB PO (22:06)
[2019-02-19] MEDS: DEXTROSE 5%-0.45% NACL 1,000 ML IV (00:43)
[2019-02-19] MEDS: HYDROCHLOROTHIAZIDE 12.5 MG CAP PO (06:25)
[2019-02-19] MEDS: ONDANSETRON 4 MG INJ IV (08:51)
[2019-02-19] MEDS: MELOXICAM 15 MG TAB PO ×2 (09:00→10:50)
[2019-02-19] MEDS ORDERED: FENTAnyl PATCH 12 MCG/HR TRANSDERM (09:00)
[2019-02-19] MEDS: FOLIC ACID 1 MG TAB PO (12:40)
[2019-02-19] MEDS: AMLODIPINE 5 MG TAB PO (12:40)
[2019-02-19] MEDS: DOCUSATE SODIUM 100 MG CAP PO (12:40)
[2019-02-19] MEDS: FAMOTIDINE 20 MG TAB PO (12:40)
[2019-02-19] MEDS: POLYETHYLENE GLYCOL 17 GM PACKET PO (12:40)
== END 2019-02-19 14:40 | disposition home or self-care (01) | DRG 165 ==
LOC: REC 10:18 → TEL 02-11 04:02 → ICU 16:10
PROC: 0BBF4ZZ Excision of Right Lower Lung Lobe, Percutaneous Endoscopic Approach (ICD-10-PCS; principal; 2019-02-08 13:00)
PROC: 07B74ZX Excision of Thorax Lymphatic, Percutaneous Endoscopic Approach, Diagnostic (ICD-10-PCS; 2019-02-08 13:00)
DX: C34.31 Malignant neoplasm of lower lobe, right bronchus or lung (principal); R33.9 Retention of urine, unspecified; I10 Essential (primary) hypertension; E78.5 Hyperlipidemia, unspecified; D64.9 Anemia, unspecified; K59.00 Constipation, unspecified; E63.8 Other specified nutritional deficiencies; M79.671 Pain in right foot; G89.18 Other acute postprocedural pain
CPT/HCPCS: 71045; 73630; 74018; 80048; 81003; 82378; 82728; 82962; 83540; 83735; 85025; 85610; 85730; 86900; 86901; 87081; 88305; 88307; 88313; 88331; 97116; 97161; 97530

== ENCOUNTER → 2019-03-04 | Outpatient (CLI) | payer BC ==
[2019-03-04 14:14] LABS: ADD MAN DIFF? NO
[2019-03-04 14:22] LABS: WHITE BLOOD COUNT 4.2 10^3/ul (4.8-10.8)
[2019-03-04 14:22] LABS: EOSINOPHILS # 0.3 10^3/ul (0.0-0.5); EOSINOPHILS % 7.2 % (0.0-7.0); HEMATOCRIT 36.8 % (37.0-47.0); HEMOGLOBIN 12.1 g/dl (12.0-16.0); LYMPHOCYTES # 1.1 10^3/ul (0.8-2.9); MEAN CORPUSCULAR HEMOGLOBIN 26.4 pg (29.0-33.0); MEAN CORPUSCULAR HGB CONC 32.9 g/dl (32.0-37.0); MEAN CORPUSCULAR VOLUME 80.2 fl (82.0-101.0); MEAN PLATELET VOLUME 10.1 fl (7.4-10.4); MONOCYTE # 0.4 10^3/ul (0.3-0.9); NEUTROPHIL # 2.3 10^3/ul (1.6-7.5); NEUTROPHILS % 54.6 % (39.0-77.0); PLATELET COUNT 301 10^3/UL (140-415); RED BLOOD COUNT 4.59 10^6/ul (4.20-5.40); RED CELL DISTRIBUTION WIDTH 14.5 % (11.5-14.5)
[2019-03-04 14:49] LABS: ALANINE AMINOTRANSFERASE 19 IU/L (13-69); ALBUMIN 4.2 g/dl (3.3-4.9); ALKALINE PHOSPHATASE 97 IU/L (42-121); ANION GAP 7 (5-13); ASPARTATE AMINO TRANSFERASE 20 IU/L (15-46); BILIRUBIN,INDIRECT 0.5 mg/dl (0-1.1); BILIRUBIN,TOTAL 0.5 mg/dl (0.2-1.3); BLOOD UREA NITROGEN 18 mg/dl (7-20); CALCIUM 10.2 mg/dl (8.4-10.2); CARBON DIOXIDE 32 mmol/L (21-31); CHLORIDE 105 mmol/L (97-110); Estimated GFR 51 mL/min (>60); GLUCOSE 101 mg/dl (70-220); POTASSIUM 4.7 mmol/L (3.5-5.1); SODIUM 144 mmol/L (135-144)
== END | disposition home or self-care (01) ==
LOC: LAB 13:37
DX: D64.9 Anemia, unspecified (principal); E87.6 Hypokalemia
CPT/HCPCS: 80053; 85025; 87075

== ENCOUNTER → 2019-03-16 | Outpatient (CLI) | payer BC | END | disposition home or self-care (01) | LOC: RAD 14:03 | DX: C34.31 Malignant neoplasm of lower lobe, right bronchus or lung (principal) | CPT/HCPCS: 71046 ==

== ENCOUNTER → 2019-04-25 | Outpatient (CLI) | payer BC ==
[2019-04-25 13:19] LABS: ADD MAN DIFF? NO
[2019-04-25 13:20] LABS: BASOPHILS % 0.6 % (0.0-2.0); EOSINOPHILS # 0.1 10^3/ul (0.0-0.5); EOSINOPHILS % 2.2 % (0.0-7.0); HEMATOCRIT 38.7 % (37.0-47.0); HEMOGLOBIN 12.5 g/dl (12.0-16.0); LYMPHOCYTES # 1.2 10^3/ul (0.8-2.9); LYMPHOCYTES % 35.9 % (15.0-51.0); MEAN CORPUSCULAR HEMOGLOBIN 26.8 pg (29.0-33.0); MEAN CORPUSCULAR HGB CONC 32.3 g/dl (32.0-37.0); MEAN CORPUSCULAR VOLUME 82.9 fl (82.0-101.0); MEAN PLATELET VOLUME 10.3 fl (7.4-10.4); MONOCYTE # 0.4 10^3/ul (0.3-0.9); MONOCYTES % 12.1 % (0.0-11.0); NEUTROPHIL # 1.6 10^3/ul (1.6-7.5); NEUTROPHILS % 48.9 % (39.0-77.0); PLATELET COUNT 229 10^3/UL (140-415); RED BLOOD COUNT 4.67 10^6/ul (4.20-5.40); RED CELL DISTRIBUTION WIDTH 15.6 % (11.5-14.5)
[2019-04-25 13:20] LABS: WHITE BLOOD COUNT 3.2 10^3/ul (4.8-10.8)
[2019-04-25 13:49] LABS: ALANINE AMINOTRANSFERASE 20 IU/L (13-69); ALBUMIN 4.6 g/dl (3.3-4.9); ALBUMIN/GLOBULIN RATIO 1.21; ALKALINE PHOSPHATASE 79 IU/L (42-121); ANION GAP 9 (5-13); ASPARTATE AMINO TRANSFERASE 22 IU/L (15-46); BILIRUBIN,INDIRECT 0.5 mg/dl (0-1.1); BILIRUBIN,TOTAL 0.5 mg/dl (0.2-1.3); BLOOD UREA NITROGEN 17 mg/dl (7-20); CALCIUM 10.3 mg/dl (8.4-10.2); CARBON DIOXIDE 30 mmol/L (21-31); CHLORIDE 103 mmol/L (97-110); CREATININE 1.14 mg/dl (0.44-1.00); Estimated GFR 60 mL/min (>60); GAMMA GLUTAMYL TRANSPEPTIDASE 18 IU/L (0-50); GLUCOSE 94 mg/dl (70-220); LACTATE DEHYDROGENASE 555 IU/L (313-618); POTASSIUM 3.8 mmol/L (3.5-5.1); SODIUM 142 mmol/L (135-144); TOTAL PROTEIN 8.4 g/dl (6.1-8.1); URIC ACID 5.4 mg/dl (3.1-7.9)
== END | disposition home or self-care (01) ==
LOC: LAB 12:59
DX: C34.90 Malignant neoplasm of unspecified part of unspecified bronchus or lung (principal)
CPT/HCPCS: 80053; 82977; 83615; 84560; 85025

== ENCOUNTER 2019-05-01 04:31 | Emergency (ER) | payer BC ==
[2019-05-01] MEDS: SOD CHLORIDE 0.9% 1,000 ML IV ×2 (04:59→07:34)
[2019-05-01] MEDS: ONDANSETRON 4 MG INJ IV (05:00)
[2019-05-01 05:08] LABS: ADD MAN DIFF? NO
[2019-05-01 05:12] LABS: WHITE BLOOD COUNT 3.6 10^3/ul (4.8-10.8)
[2019-05-01 05:12] LABS: BASOPHILS % 0.3 % (0.0-2.0); EOSINOPHILS % 0.3 % (0.0-7.0); HEMATOCRIT 38.8 % (37.0-47.0); HEMOGLOBIN 12.7 g/dl (12.0-16.0); LYMPHOCYTES % 28.5 % (15.0-51.0); MEAN CORPUSCULAR HEMOGLOBIN 26.9 pg (29.0-33.0); MEAN CORPUSCULAR HGB CONC 32.7 g/dl (32.0-37.0); MEAN CORPUSCULAR VOLUME 82.2 fl (82.0-101.0); MEAN PLATELET VOLUME 9.9 fl (7.4-10.4); MONOCYTE # 0.4 10^3/ul (0.3-0.9); MONOCYTES % 10.8 % (0.0-11.0); NEUTROPHIL # 2.2 10^3/ul (1.6-7.5); NEUTROPHILS % 59.8 % (39.0-77.0); PLATELET COUNT 201 10^3/UL (140-415); RED BLOOD COUNT 4.72 10^6/ul (4.20-5.40); RED CELL DISTRIBUTION WIDTH 15.2 % (11.5-14.5)
[2019-05-01 05:51] LABS: ALANINE AMINOTRANSFERASE 32 IU/L (13-69); ALBUMIN 4.1 g/dl (3.3-4.9); ALBUMIN/GLOBULIN RATIO 1.13; ALKALINE PHOSPHATASE 77 IU/L (42-121); ANION GAP 7 (5-13); ASPARTATE AMINO TRANSFERASE 28 IU/L (15-46); BILIRUBIN,INDIRECT 0.7 mg/dl (0-1.1); BILIRUBIN,TOTAL 0.7 mg/dl (0.2-1.3); BLOOD UREA NITROGEN 23 mg/dl (7-20); CALCIUM 10.5 mg/dl (8.4-10.2); CARBON DIOXIDE 32 mmol/L (21-31); CHLORIDE 100 mmol/L (97-110); CREATININE 1.34 mg/dl (0.44-1.00); Estimated GFR 50 mL/min (>60); GLUCOSE 108 mg/dl (70-220); LIPASE 48 U/L (23-300); POTASSIUM 3.4 mmol/L (3.5-5.1); SODIUM 139 mmol/L (135-144); TOTAL PROTEIN 7.7 g/dl (6.1-8.1)
[2019-05-01 06:16] LABS: ADD UMIC NO; UR ASCORBIC ACID NEGATIVE (NEGATIVE); UR BILIRUBIN (Dip) NEGATIVE (NEGATIVE); UR BLOOD (Dip) NEGATIVE (NEGATIVE); UR CLARITY CLEAR (CLEAR); UR COLOR STRAW (YELLOW); UR GLUCOSE (Dip) NEGATIVE (NEGATIVE); UR KETONES (Dip) NEGATIVE (NEGATIVE); UR LEUKOCYTE ESTERASE (Dip) NEGATIVE Leu/ul (NEGATIVE); UR NITRITE (Dip) NEGATIVE (NEGATIVE); UR SPECIFIC GRAVITY (Dip) 1.008 (1.003-1.030); UR TOTAL PROTEIN (Dip) NEGATIVE (NEGATIVE); UR UROBILINOGEN (Dip) NEGATIVE (NEGATIVE)
[2019-05-01] MEDS: METOCLOPRAMIDE 10 MG INJ IV (07:03)
[2019-05-01] MEDS: DIPHENHYDRAMINE 50 MG INJ IV (07:04)
== END 2019-05-01 08:39 | disposition home or self-care (01) ==
LOC: E/R 04:31
DX: E86.0 Dehydration (principal); N18.9 Chronic kidney disease, unspecified; E87.6 Hypokalemia; D72.819 Decreased white blood cell count, unspecified; R53.0 Neoplastic (malignant) related fatigue; C34.90 Malignant neoplasm of unspecified part of unspecified bronchus or lung; Z87.891 Personal history of nicotine dependence
CPT/HCPCS: 36415; 71045; 80053; 81003; 83690; 85025; 93005; 96361; 96374; 96375; 99285-25

== ENCOUNTER → 2019-05-23 | Outpatient (CLI) | payer BC ==
[2019-05-23 13:31] LABS: ADD MAN DIFF? NO
[2019-05-23 13:34] LABS: WHITE BLOOD COUNT 4.5 10^3/ul (4.8-10.8)
[2019-05-23 13:34] LABS: BASOPHIL # 0.1 10^3/ul (0.0-0.1); BASOPHILS % 1.1 % (0.0-2.0); EOSINOPHILS # 0.1 10^3/ul (0.0-0.5); EOSINOPHILS % 1.8 % (0.0-7.0); HEMOGLOBIN 12.8 g/dl (12.0-16.0); LYMPHOCYTES # 1.5 10^3/ul (0.8-2.9); LYMPHOCYTES % 32.6 % (15.0-51.0); MEAN CORPUSCULAR HEMOGLOBIN 26.9 pg (29.0-33.0); MEAN CORPUSCULAR HGB CONC 32.8 g/dl (32.0-37.0); MEAN CORPUSCULAR VOLUME 81.9 fl (82.0-101.0); MEAN PLATELET VOLUME 9.2 fl (7.4-10.4); MONOCYTE # 0.8 10^3/ul (0.3-0.9); MONOCYTES % 18.8 % (0.0-11.0); NEUTROPHILS % 45.5 % (39.0-77.0); PLATELET COUNT 217 10^3/UL (140-415); RED BLOOD COUNT 4.76 10^6/ul (4.20-5.40); RED CELL DISTRIBUTION WIDTH 16.5 % (11.5-14.5)
[2019-05-23 13:50] LABS: ALANINE AMINOTRANSFERASE 25 IU/L (13-69); ALBUMIN 4.5 g/dl (3.3-4.9); ALBUMIN/GLOBULIN RATIO 1.28; ALKALINE PHOSPHATASE 86 IU/L (42-121); ANION GAP 6 (5-13); ASPARTATE AMINO TRANSFERASE 24 IU/L (15-46); BILIRUBIN,INDIRECT 0.4 mg/dl (0-1.1); BILIRUBIN,TOTAL 0.4 mg/dl (0.2-1.3); BLOOD UREA NITROGEN 13 mg/dl (7-20); CALCIUM 10.1 mg/dl (8.4-10.2); CARBON DIOXIDE 31 mmol/L (21-31); CHLORIDE 104 mmol/L (97-110); CREATININE 1.53 mg/dl (0.44-1.00); Estimated GFR 42 mL/min (>60); GLUCOSE 102 mg/dl (70-220); LACTATE DEHYDROGENASE 518 IU/L (313-618); POTASSIUM 4.5 mmol/L (3.5-5.1); SODIUM 141 mmol/L (135-144)
== END | disposition home or self-care (01) ==
LOC: LAB 13:15
DX: C34.31 Malignant neoplasm of lower lobe, right bronchus or lung (principal)
CPT/HCPCS: 80053; 83615; 85025